=== PATIENT | male | born 1970 | race Caucasian/White ===

== ENCOUNTER → 2023-03-10 | Outpatient (REF) | payer OTHER | LOC: M LAB REF 09:52 | PROVIDERS: ATTEND Internal Medicine Gastroenterology | DX: R19.7 Diarrhea, unspecified (principal) ==

== ENCOUNTER 2023-08-07 09:41 | Day surgery (SDC) | payer OTHER ==
[~2023-08-07] VITALS: Ht 180.3 cm; Wt 114.8 kg
[~2023-08-07 09:41] MED LIST: ATOR80TA59 PO; LIDOCAINE 2% 100MG/5ML SDV (FOR ANES.) As Ordered ONE; METF-838 PO; MONT10TA97 PO; NS 1,000 ML IV ONE; OMEG10002 PO; ZOLO100T PO; propofoL 200 MG/20 ML VIAL As Ordered ONE
[2023-08-07] MEDS ORDERED: D 101000 PO (10:02)
[2023-08-07 11:21] VITALS: TEMP 97.2
[2023-08-07 11:45] VITALS: BP 108/68; O2SAT 98
== END 2023-08-07 11:55 | disposition home or self-care (01) ==
LOC: M OPP 09:41
PROVIDERS: ATTEND Internal Medicine Gastroenterology
DX: Z12.11 Encounter for screening for malignant neoplasm of colon (principal); Z83.719 Family history of colon polyps, unspecified; K63.5 Polyp of colon; K64.0 First degree hemorrhoids; Z87.891 Personal history of nicotine dependence; Z91.89 Other specified personal risk factors, not elsewhere classified; E11.9 Type 2 diabetes mellitus without complications; G47.30 Sleep apnea, unspecified; Z99.89 Dependence on other enabling machines and devices; Z79.02 Long term (current) use of antithrombotics/antiplatelets; Z79.51 Long term (current) use of inhaled steroids; Z79.84 Long term (current) use of oral hypoglycemic drugs; Z79.899 Other long term (current) drug therapy